=== PATIENT | female | born 2000 | race Caucasian/White ===

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

== ENCOUNTER 2020-10-25 16:24 | Emergency (ER) | payer OTHER ==
[~2020-10-25] VITALS: Ht 154.9 cm; Wt 68.0 kg
[~2020-10-25 16:24] MED LIST changes: +AMOXICILLIN500 MG PO
== END 2020-10-25 19:37 | disposition home or self-care (01) ==
LOC: ER 16:24
DX: N83.291 Other ovarian cyst, right side (principal)